=== PATIENT | male | born 1935 | race Caucasian/White ===

== ENCOUNTER 2018-08-19 14:47 | Emergency (ER) | payer MEDICARE, BC ==
[2018-08-19 15:18] LABS: APPEARANCE,URINE Slightly Cloudy; BILIRUBIN,URINE NEGATIVE (NEGATIVE); COLOR,URINE Yellow; GLUCOSE, URINE (UA) NEGATIVE (NEGATIVE); KETONES,URINE NEGATIVE (NEGATIVE); LEUKOCYTE ESTERASE ,URINE NEGATIVE (NEGATIVE); NITRATE,URINE NEGATIVE (NEGATIVE); OCCULT BLOOD,URINE 2+ (NEG-TRACE); PH,URINE 5.5; UROBILINOGEN,URINE 0.2 (0.2-1.0 EU)
[2018-08-19 15:25] LABS: HEMATOCRIT 43 % (39-53); HEMOGLOBIN 14.1 gm/dl (13.5-17.7); MEAN CORPUSCULAR HEMOGLOBIN 31.3 pg (27.0-32.0); MEAN CORPUSCULAR HGB CONC 33.1 gm/dl (32.0-36.0); MEAN CORPUSCULAR VOLUME 95 fL (80-100)
[2018-08-19 15:25] LABS: BACTERIA NEGATIVE (< 1+); CRYSTALS NEGATIVE (0-3 AVE/HPF); EPITHELIAL CELLS 0-2 (SQUAMOUS); WBC,URINE 0-1 (0-5AV/HPF)
[2018-08-19] MEDS ORDERED: BACITRACIN 500 U/GM OIN TOP ONE ×2 (15:26→16:07)
[2018-08-19] MEDS: SODIUM CHLORIDE 0.9% FLUSH 10 ML SOL IV PRN ×3 (15:28→16:40)
[2018-08-19 15:32] LABS: ALBUMIN 4.1 gm/dl (3.4-5.0); BILIRUBIN,TOTAL 0.3 mg/dl (0.2-1.0); CALCIUM 8.8 mg/dl (8.5-10.1); CARBON DIOXIDE 23.3 mEq/L (21-32); CREATININE 1.12 mg/dl (0.80-1.30); POTASSIUM 3.8 mMol/L (3.5-5.1); TOTAL PROTEIN 7.6 gm/dl (6.4-8.2); TROP I 0.021 ng/ml (0.000-0.056)
[2018-08-19] MEDS ORDERED: ONDANSETRON HCL 4 MG/2 ML SOL IV ONE (15:43)
[2018-08-19] MEDS ORDERED: ONDANSETRON HCL 4 MG/2 ML SOL ONE (15:45)
[2018-08-19 15:50] LABS: BAND NEUTROPHILS % (MANUAL) 22 %; BASOPHILS % (MANUAL) 1 % (0-3); EOSINOPHILS % (MANUAL) 2 % (0-9); LYMPHOCYTES % (MANUAL) 11 % (10-50); MONOCYTES % (MANUAL) 9 % (0-12); NEUTROPHILS % (MANUAL) 55 % (37-80); NORMAL RBCS PRESENT
[2018-08-19] MEDS ORDERED: TDAP VACCINE 0.5 ML SUS IM ONE ×2 (15:58→16:07)
[2018-08-19 16:07] VITALS: TEMP 97
[2018-08-19 16:15] VITALS: O2SAT 93
[2018-08-19] MEDS ORDERED: LABETALOL HYDROCHLORIDE 5 MG/ML SOL IV ONE ×2 (16:33→16:35)
[2018-08-19] MEDS ORDERED: SODIUM CHLORIDE 0.9% 1000ML 1,000 ML IV ONE (17:00)
[2018-08-19 18:07] VITALS: BP 83/60; PULSE 77; RESP 24
== END 2018-08-19 17:14 | disposition short-term general hospital (02) | DRG 914 ==
LOC: ED 14:47
DX: S09.90XA Unspecified injury of head, initial encounter (principal); S12.100A Unspecified displaced fracture of second cervical vertebra, initial encounter for closed fracture; S12.600A Unspecified displaced fracture of seventh cervical vertebra, initial encounter for closed fracture; S37.30XA Unspecified injury of urethra, initial encounter; W10.8XXA Fall (on) (from) other stairs and steps, initial encounter; R11.2 Nausea with vomiting, unspecified; R40.2362 Coma scale, best motor response, obeys commands, at arrival to emergency department; R40.2142 Coma scale, eyes open, spontaneous, at arrival to emergency department; R40.2252 Coma scale, best verbal response, oriented, at arrival to emergency department
CPT/HCPCS: 70450; 72125; 72129; 72132; 80053; 81001; 84484; 85007; 85027; 85378; 90471; 90715; 93005; 96374; 96375; 99284; 99291; J2405; A9270-GY; J3490

== ENCOUNTER 2018-08-29 13:12 | Emergency (ER) | payer MEDICARE, BC ==
[2018-08-29] MEDS ORDERED: ASPIRIN 81 MG CHEWABLE CTB PO STA (13:18)
[2018-08-29] MEDS ORDERED: NITROGLYCERIN 0.4 MG TAB SL PRN (13:18)
[2018-08-29] MEDS ORDERED: SODIUM CHLORIDE 0.9% FLUSH 10 ML SOL IV PRN (13:18)
[2018-08-29] MEDS ORDERED: ASPIRIN 81 MG CHEWABLE CTB ONE ×2 (13:21→13:22)
[2018-08-29 13:23] VITALS: TEMP 97.5
[2018-08-29 13:41] LABS: BASOPHILS % (AUTO) 1 % (0-3); EOSINOPHILS % (AUTO) 1 % (0-9); HEMATOCRIT 35 % (39-53); HEMOGLOBIN 11.9 gm/dl (13.5-17.7); LYMPHOCYTES % (AUTO) 13.8 % (10-50); MEAN CORPUSCULAR HEMOGLOBIN 31.8 pg (27.0-32.0); MEAN CORPUSCULAR HGB CONC 33.6 gm/dl (32.0-36.0); MEAN CORPUSCULAR VOLUME 95 fL (80-100); MONOCYTES % (AUTO) 15.9 % (0-12); NEUTROPHILS % (AUTO) 68.2 % (37-80)
[2018-08-29 13:57] LABS: CALCIUM 8.6 mg/dl (8.5-10.1); CARBON DIOXIDE 26.6 mEq/L (21-32); CREATININE 1.12 mg/dl (0.80-1.30); POTASSIUM 4.4 mMol/L (3.5-5.1); TROP I 0.029 ng/ml (0.000-0.056)
[2018-08-29 14:00] LABS: INR 1.02 (0.86-1.12)
[2018-08-29] MEDS ORDERED: NITROGLYCERIN 0.4 MG TAB SL ONE (14:25)
[2018-08-29] MEDS ORDERED: AZITHROMYCIN 250 MG TAB PO ONE (15:14)
[2018-08-29] MEDS ORDERED: SOLUMEDROL 125 MG/2 ML 125 MG/2 ML PDS IV ONE (15:15)
[2018-08-29] MEDS ORDERED: AZITHROMYCIN 250 MG TAB ONE (15:38)
[2018-08-29] MEDS ORDERED: SOLUMEDROL 125 MG/2 ML 125 MG/2 ML PDS ONE (15:38)
[2018-08-29 16:18] VITALS: BP 140/101; PULSE 84; RESP 21; O2SAT 92
== END 2018-08-29 16:05 | DRG 153 ==
LOC: ED 13:12
DX: J06.9 Acute upper respiratory infection, unspecified (principal); R06.02 Shortness of breath; I10 Essential (primary) hypertension
CPT/HCPCS: 71045; 80048; 82550; 83880; 84484; 85025; 85610; 85730; 93005; 94664; 96374; 99284; 99285; J2930; A9270-GY